=== PATIENT | male | born 1975 | race Caucasian/White ===

== ENCOUNTER 2017-09-06 13:21 | Emergency (ER) | payer OTHER, BC ==
[~2017-09-06] VITALS: Ht 188 cm; Wt 92.5 kg
[~2017-09-06 13:21] MED LIST: ASCORBIC ACID500 M3 PO; CYCLOBENZAPRINE10 MG PO; DOCUSATE SODIU100 MG PO; FOLIC ACID1 MG PO; OXYCODONE HCL10 MG PO; OXYCONTIN10 MG PO; PANTOPRAZOLE SO40 MG PO; SENNA8.6 MG PO; TAMSULOSIN HCL0.4 MG PO; THERAGRAN1 TABLET PO
[2017-09-06] MEDS ORDERED: FLEXERIL10 MG PO (14:28)
[2017-09-06 14:48] VITALS: BP 112/79
== END 2017-09-06 15:06 | disposition home or self-care (01) ==
LOC: EME 13:21
DX: S16.1XXA Strain of muscle, fascia and tendon at neck level, initial encounter (principal); V43.52XA Car driver injured in collision with other type car in traffic accident, initial encounter; Y92.410 Unspecified street and highway as the place of occurrence of the external cause; Z88.0 Allergy status to penicillin
CPT/HCPCS: 72125; 99281; 99284